=== PATIENT | female | born 1980 | race Two or more races ===

== ENCOUNTER 2019-03-22 18:17 | Emergency (ER) | payer SELFPAY ==
[~2019-03-22] VITALS: Ht 162.6 cm; Wt 104.3 kg
[2019-03-22 19:00] LABS: BASO # 0.1 x10^3/uL (0.0-0.2); BASO % 1 % (0-3); EOS # 0.2 x10^3/uL (0.0-0.7); EOS % 1 % (0-3); HEMATOCRIT 38.4 % (36.0-47.0); LYMPH # 5.6 x10^3/uL (1.0-4.8); LYMPH % 29 % (24-48); MEAN CORPUSCULAR HEMOGLOBIN 30 pg (25-35); MEAN CORPUSCULAR HGB CONC 34 g/dL (31-37); MEAN CORPUSCULAR VOLUME 89 fL (79-100); MONO % 5 % (0-9); NEUT # 12.3 x10^3uL (1.8-7.7); NEUT % 64 % (31-73); PLATELET COUNT 305 x10^3/uL (140-400); RED BLOOD COUNT 4.33 x10^6/uL (3.50-5.40); RED CELL DISTRIBUTION WIDTH 13.4 % (11.5-14.5); WHITE BLOOD COUNT 19.3 x10^3/uL (4.0-11.0)
[2019-03-22] MEDS ORDERED: IV NORMAL SALINE 1000ML BAG 1,000 ML IV ONE (19:00)
[2019-03-22] MEDS ORDERED: fentaNYL PF VIAL 100 MCG/2 ML VIAL IV ONE (19:00)
[2019-03-22 19:02] LABS: BILIRUBIN,URINE NEGATIVE (NEG); CLARITY,URINE CLOUDY; COLOR,URINE RED; NITRITE,URINE NEGATIVE (NEG); PH,URINE 6.5; PROTEIN,URINE 100 mg/dL (NEG-TRACE)
[2019-03-22 19:10] LABS: BACTERIA,URINE MANY /HPF (0-FEW); RBC,URINE TNTC /HPF (0-2); SQUAMOUS EPITHELIAL CELL,UR OCC /LPF; WBC,URINE TNTC /HPF (0-4)
[2019-03-22 19:12] LABS: CALCIUM 8.8 mg/dL (8.5-10.1); CREATININE 0.7 mg/dL (0.6-1.0); GFR 94.2; POTASSIUM 3.9 mmol/L (3.5-5.1)
[2019-03-22 19:25] LABS: ALBUMIN 3.4 g/dL (3.4-5.0); ALBUMIN/GLOBULIN RATIO 0.8 (1.0-1.7); TOTAL BILIRUBIN 0.4 mg/dL (0.2-1.0); TOTAL PROTEIN 7.6 g/dL (6.4-8.2)
[2019-03-22] MEDS ORDERED: cefTRIAXone IV Push 1 GM VIAL. IVP ONE (19:45)
--- NOTE | 2019-03-22 20:06 | RAD ---
EXAM: Abdomen and pelvis CT without intravenous contrast. HISTORY: Right flank pain. TECHNIQUE: Computed tomographic images of the abdomen and pelvis were obtained without contrast. Multiplanar reformatting was performed. *One or more of the following individualized dose reduction techniques were utilized for this examination: 1. Automated exposure control. 2. Adjustment of the mA and/or kV according to patient size. 3. Use of iterative reconstruction technique. COMPARISON: None. FINDINGS: Evaluation of the lower thorax demonstrates no infiltrate or pleural effusion. There is basilar and posterior dependent atelectasis. The heart is normal in size. There is hepatomegaly and hepatic steatosis. No suspicious hepatic lesion is seen. The collar surgically absent. The pancreas is unremarkable. There are splenules adjacent to upper normal sized spleen. The adrenal glands are unremarkable. There is no evidence of nephroureterolithiasis. There is no evidence of hydronephrosis or hydroureter. There is mild urinary bladder wall thickening likely due to underdistention. No abnormally thickened or dilated loop of bowel is seen. The uterus is surgically absent. There are right retroperitoneal stroke clips. There is no lymphadenopathy. There are small fat-containing supraumbilical and umbilical hernias, some which are midline and others of which are to the left of midline. There is no suspicious osseous lesion. IMPRESSION: 1. Hepatomegaly and hepatic steatosis. 2. Multiple small fat-containing ventral abdominal wall hernias within the midline into the left of midline. 3. Mild urinary bladder wall thickening likely due to underdistention. 4. No evidence of nephroureterolithiasis or obstructive uropathy. Electronically signed by: Diandra Vega MD (03/22/2019 8:04 PM) [facility]
[2019-03-22] MEDS ORDERED: ONDA4TAB7 PO (20:27)
[2019-03-22] MEDS ORDERED: CEPH500T PO (20:27)
[2019-03-22] MEDS ORDERED: HYDR-3164 PO (20:27)
[2019-03-22 20:29] VITALS: BP 139/75
[2019-03-22] MEDS ORDERED: KETOROLAC 15 MG/ML VIAL. IV ONE (20:30)
--- NOTE | 2019-03-22 21:49 | PHYS DOC ---
Past Medical History Past Medical History: Other Additional Past Medical Histor: OVARIAN CA Past Surgical History: Appendectomy, Cholecystectomy, Hysterectomy Alcohol Use: None Drug Use: None Adult General Chief Complaint Chief Complaint: ABDOMINAL PAIN HPI HPI Patient is a 38 year old female is presenting with abdominal pain as well as dysuria frequency and hematuria for the last 2 days nausea no vomiting no fever that she knows of just doesn't feel that great overall. Pain is described as d ull right flank rating diffusely across the abdomen. Symptoms are moderate worsening with time has not tried anything for relief Review of Systems Review of Systems Constitutional: Denies fever or chills [] Eyes: Denies change in visual acuity, redness, or eye pain [] HENT: Denies nasal congestion or sore throat [] Respiratory: Denies cough or shortness of breath [] Cardiovascular: Neurologic: Denies headache, focal weakness or sensory changes [] Endocrine: Denies polyuria or polydipsia [] All other systems were reviewed and found to be within normal limits, except as documented in this note. Current Medications Current Medications Current Medications Medications (Trade) Dose Ordered Sig/Gabino Start Time Stop Time Status Last Admin Dose Admin Ceftriaxone Sodium (Rocephin) 1 gm 1X ONCE 03/22/19 19:45 03/22/19 19:46 DC 03/22/19 19:59 1 GM Fentanyl Citrate (Fentanyl 2ml Vial) 50 mcg 1X ONCE 03/22/19 19:00 03/22/19 19:01 DC 03/22/19 19:26 50 MCG Ketorolac Tromethamine (Toradol 15mg Vial) 15 mg 1X ONCE 03/22/19 20:30 03/22/19 20:31 DC 03/22/19 20:34 15 MG Sodium Chloride 1,000 ml @ 1,000 mls/hr 1X ONCE 03/22/19 19:00 03/22/19 19:59 DC 03/22/19 19:25 1,000 MLS/HR Allergies Allergies Allergies Coded Allergies Type Severity Reaction Last Updated Verified No Known Drug Allergies 03/22/19 No Physical Exam Physical Exam Constitutional: Well developed, well nourished, no acute distress, non-toxic ap pearance. [] HENT: Normocephalic, atraumatic, bilateral external ears normal, oropharynx moist, no oral exudates, nose normal. [] Eyes: PERRLA, EOMI, conjunctiva normal, no discharge. [] Neck: Normal range of motion, no tenderness, supple, no stridor. [] Cardiovascular:Heart rate regular rhythm, no murmur [] Lungs & Thorax: Bilateral breath sounds clear to auscultation [] Abdomen: Bowel sounds normal, soft, suprapubic tenderness, no masses, no pulsatile masses. [] No reducible hernia was identified Skin: Warm, dry, no erythema, no rash. [] Back: r CVA tenderness. [] Extremities: No tenderness, no cyanosis, no clubbing, ROM intact, no edema. [] Neurologic: Alert and oriented X 3, normal motor function, normal sensory function, no focal deficits noted. [] Psychologic: Affect normal, judgement normal, mood normal. [] Current Patient Data Vital Signs Vital Signs Date Time Temp Pulse Resp B/P (MAP) Pulse Ox O2 Delivery O2 Flow Rate FiO2 03/22/19 20:29 98 18 139/75 (96) 97 Room Air 03/22/19 18:42 98.9 98.9 Lab Values Laboratory Tests Test 03/22/19 18:21 03/22/19 18:39 Urine Color Red Urine Clarity Cloudy Urine pH 6.5 Urine Specific [place] 1.020 Urine Protein 100 mg/dL (NEG-TRACE) Urine Glucose (UA) Negative mg/dL (NEG) Urine Ketones (Stick) Negative mg/dL (NEG) Urine Blood Large (NEG) Urine Nitrite Negative (NEG) Urine Bilirubin Negative (NEG) Urine Urobilinogen Dipstick 1.0 mg/dL (0.2 mg/dL) Urine Leukocyte Esterase Large (NEG) Urine RBC Tntc /HPF (0-2) Urine WBC Tntc /HPF (0-4) Urine Squamous Epithelial Cells Occ /LPF Urine Bacteria Many /HPF (0-FEW) Urine Mucus Mod /LPF White Blood Count 19.3 x10^3/uL (4.0-11.0) H Red Blood Count 4.33 x10^6/uL (3.50-5.40) Hemoglobin 13.0 g/dL (12.0-15.5) Hematocrit 38.4 % (36.0-47.0) Mean Corpuscular Volume 89 fL (79-100) Mean Corpuscular Hemoglobin 30 pg (25-35) Mean Corpuscular Hemoglobin Concent 34 g/dL (31-37) Red Cell Distribution Width 13.4 % (11.5-14.5) Platelet Count 305 x10^3/uL (140-400) Neutrophils (%) (Auto) 64 % (31-73) Lymphocytes (%) (Auto) 29 % (24-48) Monocytes (%) (Auto) 5 % (0-9) Eosinophils (%) (Auto) 1 % (0-3) Basophils (%) (Auto) 1 % (0-3) Neutrophils # (Auto) 12.3 x10^3uL (1.8-7.7) H Lymphocytes # (Auto) 5.6 x10^3/uL (1.0-4.8) H Monocytes # (Auto) 1.0 x10^3/uL (0.0-1.1) Eosinophils # (Auto) 0.2 x10^3/uL (0.0-0.7) Basophils # (Auto) 0.1 x10^3/uL (0.0-0.2) Sodium Level 142 mmol/L (136-145) Potassium Level 3.9 mmol/L (3.5-5.1) Chloride Level 103 mmol/L (98-107) Carbon Dioxide Level 29 mmol/L (21-32) Anion Gap 10 (6-14) Blood Urea Nitrogen 11 mg/dL (7-20) Creatinine 0.7 mg/dL (0.6-1.0) Estimated GFR (Cockcroft-Gault) 94.2 BUN/Creatinine Ratio 16 (6-20) Glucose Level 141 mg/dL (70-99) H Calcium Level 8.8 mg/dL (8.5-10.1) Total Bilirubin 0.4 mg/dL (0.2-1.0) Aspartate Amino Transferase (AST) 46 U/L (15-37) H Alanine Aminotransferase (ALT) 67 U/L (14-59) H Alkaline Phosphatase 141 U/L (46-116) H Total Protein 7.6 g/dL (6.4-8.2) Albumin 3.4 g/dL (3.4-5.0) Albumin/Globulin Ratio 0.8 (1.0-1.7) L Laboratory Tests 03/22/19 18:39 Laboratory Tests 03/22/19 18:39 EKG EKG [] Radiology/Procedures Radiology/Procedures [] Impressions: IMPRESSION: 1. Hepatomegaly and hepatic steatosis. 2. Multiple small fat-containing ventral abdominal wall hernias within the midline into the left of midline. 3. Mild urinary bladder wall thickening likely due to underdistention. 4. No evidence of nephroureterolithiasis or obstructive uropathy. Electronically signed by: Diandra Vega MD (03/22/2019 8:04 PM) [facility] DICTATED and SIGNED BY: DIANDRA VEGA MD DATE: 03/22/192003 Course & Med Decision Making Course & Med Decision Making Pertinent Labs and Imaging studies reviewed. (See chart for details) []Patient has evidence of UTI probably early pyelonephritis given the leukocytosis CT scan was negative for nephrolithiasis patient felt better in the emergency room after IV fluids and antibiotics I think she is appropriate for outpatient management I asked her to come back in 2 days or sooner should she be unable to tolerate her oral antibiotics she was understanding of the precaution s no tests because she has had a hysterectomy mild tachycardia improved at the time of discharge blood pressure was much better as well there was likely pain related Dragon Disclaimer Dragon Disclaimer This electronic medical record was generated, in whole or in part, using a voice recognition dictation system. Departure Departure Impression: Primary Impression: Urinary tract infection Disposition: 01 HOME, SELF-CARE Condition: STABLE Patient Instructions: Urinary Tract Infection, [id number] Scripts Cephalexin (CEPHALEXIN) 500 Mg Tablet 1 TAB PO QID, #40 TAB Prov: LA ROWLNAD MD 03/22/19 Ondansetron Hcl (ZOFRAN) 4 Mg Tablet 4 MG PO PRN TID PRN for NAUSEA/VOMITING, #15 nausea/vomiting Prov: LA ROWLAND MD 03/22/19 Hydrocodone/Apap 5-325 (NORCO 5-325 TABLET) 1 Each Tablet 1-2 EACH PO PRN Q6HRS PRN for PAIN, #6 as needed for pain Prov: LA ROWLAND MD 03/22/19 LA ROWLAND MD Mar 22, 2019 21:49
== END 2019-03-22 20:40 | disposition home or self-care (01) ==
LOC: ER 18:17
DX: N39.0 Urinary tract infection, site not specified (principal); R11.0 Nausea; R10.30 Lower abdominal pain, unspecified; Z90.89 Acquired absence of other organs; Z90.49 Acquired absence of other specified parts of digestive tract; Z90.710 Acquired absence of both cervix and uterus
CPT/HCPCS: 36415; 74176; 80053; 81001; 85025; 87086; 96374; 96375; 99285; J0696; J1885; J3010; J7030; 96361